=== PATIENT | female | born 1985 | race Caucasian/White ===

== ENCOUNTER 2018-09-20 15:07 | Emergency (ER) | payer SELFPAY ==
[~2018-09-20] VITALS: Ht 160 cm; Wt 93.9 kg
[2018-09-20 15:10] VITALS: BP 143/99
== END 2018-09-20 16:24 | disposition home or self-care (01) ==
LOC: ED 16:04
DX: S62.647A Nondisplaced fracture of proximal phalanx of left little finger, initial encounter for closed fracture (principal); X50.1XXA Overexertion from prolonged static or awkward postures, initial encounter; Y93.89 Activity, other specified; Y92.009 Unspecified place in unspecified non-institutional (private) residence as the place of occurrence of the external cause; Y99.8 Other external cause status
CPT/HCPCS: 29130; 99283